=== PATIENT | female | born 1940 | race Caucasian/White ===

== ENCOUNTER 2018-11-05 14:00 | Inpatient (IN) | payer OTHER, MEDICAID ==
[~2018-11-05] VITALS: Ht 157.5 cm; Wt 68.5 kg
[2018-11-05 14:03] VITALS: BP_SYST 138
[2018-11-05] MEDS ORDERED: NACL 0.9% 1,000 ML IV ONE (14:30)
[2018-11-05 14:43] LABS: BASOPHILS # (AUTO) 0.1 K/uL (0.0-0.2); BASOPHILS % (AUTO) 1.3 % (0.0-2.0); EOSINOPHILS # (AUTO) 0.2 K/uL (0.0-0.4); EOSINOPHILS % (AUTO) 2.5 % (0.0-4.0); LYMPHOCYTES # (AUTO) 1.8 K/uL (1.0-5.5); LYMPHOCYTES % (AUTO) 19.9 % (20.5-51.5); MEAN CORPUSCULAR HEMOGLOBIN 16 pg (27-31); MEAN CORPUSCULAR HGB CONC 27 % (32-36); MEAN CORPUSCULAR VOLUME 57 fL (79.0-98.0); MONOCYTES # (AUTO) 0.9 K/uL (0.0-1.0); NEUTROPHILS # (AUTO) 5.9 K/uL (1.8-7.7); NEUTROPHILS % (AUTO) 66.3 % (40.0-70.0); PLATELET COUNT (AUTO) 380 K/uL (130-430); RED BLOOD CELL COUNT(AUTO) 3.33 MIL/uL (4.2-6.2); WHITE BLOOD COUNT (AUTO) 8.9 K/uL (4.8-10.8)
[2018-11-05 14:53] LABS: HEMOGLOBIN 5.2 g/dL (12.0-16.0)
[2018-11-05 15:01] LABS: ALANINE AMINOTRANSFERASE 11 U/L (12-78); ALBUMIN 2.8 g/dL (3.4-4.8); ANION GAP 9 (5-15); ASPARTATE AMINOTRANSFERASE 10 U/L (10-37); CALCIUM 8.8 mg/dL (8.4-11.0); CHLORIDE 107 mmol/L (98-107); GLUCOSE 110 mg/dL (70-99); POTASSIUM 4.9 mmol/L (3.5-5.1); SODIUM SERUM 142 mmol/L (136-145); TOTAL BILIRUBIN 0.3 mg/dL (0.0-1.0); UREA NITROGEN, BLOOD 17 mg/dL (8-21)
[2018-11-05 15:05] LABS: CREATININE 0.85 mg/dL (0.55-1.30)
[2018-11-05] MEDS ORDERED: LACT1CAP61 PO (15:06)
[2018-11-05] MEDS ORDERED: RIVA10TA PO (15:06)
[2018-11-05] MEDS ORDERED: GUAI100S14 PO (15:06)
[2018-11-05] MEDS ORDERED: IPRA4AER INH (15:06)
[2018-11-05] MEDS ORDERED: METO50TA7 PO (15:06)
[2018-11-05] MEDS ORDERED: NOR10 PO (15:06)
[2018-11-05] MEDS ORDERED: DOCU100T10 PO (15:06)
[2018-11-05] MEDS ORDERED: MULT-1117 PO (15:06)
[2018-11-05] MEDS ORDERED: ACET-2165 PO (15:06)
[2018-11-05 15:19] LABS: BILIRUBIN,URINE NEGATIVE (NEGATIVE); BLOOD, URINE NEGATIVE (NEGATIVE); CLARITY/URINE SL HAZY (CLEAR); COLOR,URINE YELLOW (YELLOW); GLUCOSE,URINE NEGATIVE (NEGATIVE); KETONES,URINE NEGATIVE (NEGATIVE); LEUKOCYTE ESTERASE ,URINE NEGATIVE (NEGATIVE); NITRITE, URINE NEGATIVE (NEGATIVE); PH,URINE 5.5 (5.0-8.0); PROTEIN URINE NEGATIVE (NEGATIVE); UROBILINOGEN,URINE 0.2 (0.2-1.0)
[2018-11-05 17:46] VITALS: BP_SYST 149
[2018-11-05 19:25] VITALS: BP_SYST 133
[2018-11-05] MEDS ORDERED: IPRATROPIUM/ALBUTEROL SULFATE 120 PUFFS/4 GM INH INH PRN (19:45)
[2018-11-05] MEDS ORDERED: ACETAMINOPHEN 325 MG TABLET PO PRN (19:45)
[2018-11-05] MEDS ORDERED: guaiFENesin 200 MG/10 ML UDC PO PRN (19:45)
[2018-11-05] MEDS ORDERED: LevALBUTEROL HCL 1.25 MG/0.5 ML *CONC.* VIAL.NEB (XOPENEX CONC.) INH PRN (19:45)
[2018-11-05 20:46] VITALS: BP_SYST 128
[2018-11-05] MEDS: PANTOPRAZOLE SODIUM 40 MG/VIAL (PROTONIX) IVP SCH (21:14)
[2018-11-05] MEDS: DOCUSATE SODIUM 100 MG CAPSULE PO SCH (21:14)
[2018-11-05] MEDS: METOPROLOL SUCCINATE 50 MG TAB.SR.24H (TOPROL XL) PO SCH (21:14)
[2018-11-05] MEDS: LevALBUTEROL HCL 1.25 MG/0.5 ML *CONC.* VIAL.NEB (XOPENEX CONC.) INH SCH (23:43)
[2018-11-06 00:23] VITALS: BP_SYST 119
[2018-11-06] MEDS ORDERED: IPRATROPIUM/ALBUTEROL SULFATE 3 ML AMPUL.NEB (DUONEB) INH PRN (07:15)
[2018-11-06 07:17] LABS: ANION GAP 10 (5-15); CALCIUM 8.8 mg/dL (8.4-11.0); CHLORIDE 109 mmol/L (98-107); CREATININE 0.48 mg/dL (0.55-1.30); GLUCOSE 88 mg/dL (70-99); POTASSIUM 4.1 mmol/L (3.5-5.1); SODIUM SERUM 143 mmol/L (136-145); UREA NITROGEN, BLOOD 11 mg/dL (8-21)
[2018-11-06 07:21] LABS: PHOSPHORUS 2.9 mg/dL (2.7-4.5)
[2018-11-06] MEDS: LevALBUTEROL HCL 1.25 MG/0.5 ML *CONC.* VIAL.NEB (XOPENEX CONC.) INH SCH ×3 (07:33→21:31)
[2018-11-06 07:58] LABS: BASOPHILS # (AUTO) 0.1 K/uL (0.0-0.2); BASOPHILS % (AUTO) 1.5 % (0.0-2.0); EOSINOPHILS # (AUTO) 0.2 K/uL (0.0-0.4); EOSINOPHILS % (AUTO) 1.8 % (0.0-4.0); HEMATOCRIT 28.8 % (36-48); LYMPHOCYTES # (AUTO) 1.7 K/uL (1.0-5.5); LYMPHOCYTES % (AUTO) 19.5 % (20.5-51.5); MEAN CORPUSCULAR HEMOGLOBIN 21 pg (27-31); MEAN CORPUSCULAR HGB CONC 31 % (32-36); MONOCYTES # (AUTO) 0.8 K/uL (0.0-1.0); MONOCYTES % (AUTO) 9.1 % (1.7-9.3); NEUTROPHILS % (AUTO) 68.1 % (40.0-70.0); PLATELET COUNT (AUTO) 340 K/uL (130-430); RED BLOOD CELL COUNT(AUTO) 4.32 MIL/uL (4.2-6.2); RED CELL DISTRIBUTION WIDTH 29.5 % (9.0-15.0); WHITE BLOOD COUNT (AUTO) 8.8 K/uL (4.8-10.8)
[2018-11-06 07:59] VITALS: BP_SYST 157
[2018-11-06 08:02] LABS: MEAN CORPUSCULAR VOLUME 67 fL (79.0-98.0)
[2018-11-06] MEDS: DOCUSATE SODIUM 100 MG CAPSULE PO SCH ×2 (09:38→20:20)
[2018-11-06] MEDS: PANTOPRAZOLE SODIUM 40 MG/VIAL (PROTONIX) IVP SCH ×2 (09:38→20:20)
[2018-11-06] MEDS: amLODIPine BESYLATE 10 MG TABLET PO SCH (09:39)
[2018-11-06] MEDS: METOPROLOL SUCCINATE 50 MG TAB.SR.24H (TOPROL XL) PO SCH ×2 (09:39→20:22)
[2018-11-06] MEDS: MULTIVITAMINS TAB 1 TABLET PO SCH (09:40)
[2018-11-06 11:31] LABS: TOTAL IRON BIND. CAPACITY 316 ug/dL (250-450)
[2018-11-06 11:35] VITALS: BP_SYST 131
[2018-11-06 15:32] VITALS: BP_SYST 125
[2018-11-06 20:00] VITALS: BP_SYST 136
[2018-11-06] MEDS: SOD FERRIC GLUC COMPLEX/SUC 125 MG in NS 100 ML IV SCH (21:46)
[2018-11-07 00:34] VITALS: BP_SYST 117
[2018-11-07] MEDS: LevALBUTEROL HCL 1.25 MG/0.5 ML *CONC.* VIAL.NEB (XOPENEX CONC.) INH SCH ×2 (07:03→16:36)
[2018-11-07 08:00] VITALS: BP_SYST 130
[2018-11-07] MEDS: MULTIVITAMINS TAB 1 TABLET PO SCH (10:05)
[2018-11-07] MEDS: PANTOPRAZOLE SODIUM 40 MG/VIAL (PROTONIX) IVP SCH ×2 (10:05→21:09)
[2018-11-07] MEDS: DOCUSATE SODIUM 100 MG CAPSULE PO SCH ×2 (10:05→21:09)
[2018-11-07] MEDS: amLODIPine BESYLATE 10 MG TABLET PO SCH (10:23)
[2018-11-07] MEDS: METOPROLOL SUCCINATE 50 MG TAB.SR.24H (TOPROL XL) PO SCH ×2 (10:23→21:10)
[2018-11-07 14:12] VITALS: BP_SYST 125
[2018-11-07 16:12] VITALS: BP_SYST 141
[2018-11-07] MEDS: SOD FERRIC GLUC COMPLEX/SUC 125 MG in NS 100 ML IV SCH (18:02)
[2018-11-08] VITALS (7 sets, daily range): BP systolic 127–150
[2018-11-08] MEDS: LevALBUTEROL HCL 1.25 MG/0.5 ML *CONC.* VIAL.NEB (XOPENEX CONC.) INH SCH ×3 (00:41→15:13)
[2018-11-08] MEDS: PANTOPRAZOLE SODIUM 40 MG/VIAL (PROTONIX) IVP SCH ×2 (08:47→20:34)
[2018-11-08] MEDS: DOCUSATE SODIUM 100 MG CAPSULE PO SCH ×2 (08:47→20:34)
[2018-11-08] MEDS: MULTIVITAMINS TAB 1 TABLET PO SCH (08:48)
[2018-11-08] MEDS: amLODIPine BESYLATE 10 MG TABLET PO SCH (08:48)
[2018-11-08] MEDS: METOPROLOL SUCCINATE 50 MG TAB.SR.24H (TOPROL XL) PO SCH ×2 (08:48→20:35)
[2018-11-08] MEDS ORDERED: GOLYTELY / COLYTE SOLUTION 4 LITERS PO ONE (17:00)
[2018-11-08] MEDS ORDERED: BISACODYL 5 MG TABLET.DR (DULCOLAX) PO ONE (17:00)
[2018-11-08] MEDS: SOD FERRIC GLUC COMPLEX/SUC 125 MG in NS 100 ML IV SCH (17:36)
[2018-11-09] MEDS: LevALBUTEROL HCL 1.25 MG/0.5 ML *CONC.* VIAL.NEB (XOPENEX CONC.) INH SCH ×4 (00:34→23:19)
[2018-11-09 06:13] LABS: BASOPHILS # (AUTO) 0.1 K/uL (0.0-0.2); BASOPHILS % (AUTO) 0.9 % (0.0-2.0); EOSINOPHILS # (AUTO) 0.3 K/uL (0.0-0.4); EOSINOPHILS % (AUTO) 2.9 % (0.0-4.0); HEMATOCRIT 28.8 % (36-48); HEMOGLOBIN 8.4 g/dL (12.0-16.0); LYMPHOCYTES # (AUTO) 1.5 K/uL (1.0-5.5); LYMPHOCYTES % (AUTO) 12.6 % (20.5-51.5); MEAN CORPUSCULAR HEMOGLOBIN 20 pg (27-31); MEAN CORPUSCULAR HGB CONC 29 % (32-36); MEAN CORPUSCULAR VOLUME 67 fL (79.0-98.0); MONOCYTES % (AUTO) 8.9 % (1.7-9.3); NEUTROPHILS # (AUTO) 8.7 K/uL (1.8-7.7); NEUTROPHILS % (AUTO) 74.7 % (40.0-70.0); PLATELET COUNT (AUTO) 317 K/uL (130-430); RED BLOOD CELL COUNT(AUTO) 4.28 MIL/uL (4.2-6.2); WHITE BLOOD COUNT (AUTO) 11.7 K/uL (4.8-10.8)
[2018-11-09 06:41] LABS: PROTHROMBIN TIME 10.4 SECS (9.5-12.5)
[2018-11-09 07:18] LABS: RED CELL DISTRIBUTION WIDTH 31.6 % (9.0-15.0)
[2018-11-09 07:40] VITALS: BP_SYST 122
[2018-11-09 07:41] LABS: ANION GAP 10 (5-15); CALCIUM 9.1 mg/dL (8.4-11.0); CHLORIDE 107 mmol/L (98-107); CREATININE 0.55 mg/dL (0.55-1.30); GLUCOSE 84 mg/dL (70-99); SODIUM SERUM 139 mmol/L (136-145); UREA NITROGEN, BLOOD 11 mg/dL (8-21)
[2018-11-09 07:43] LABS: POTASSIUM 2.9 mmol/L (3.5-5.1)
[2018-11-09] MEDS: PANTOPRAZOLE SODIUM 40 MG/VIAL (PROTONIX) IVP SCH ×2 (08:21→22:13)
[2018-11-09] MEDS ORDERED: POTASSIUM CHLORIDE 20 MEQ TAB.PRT.SR PO ONE ×2 (08:30→13:00)
[2018-11-09] MEDS: amLODIPine BESYLATE 10 MG TABLET PO SCH (09:00)
[2018-11-09] MEDS: DOCUSATE SODIUM 100 MG CAPSULE PO SCH ×2 (09:00→22:13)
[2018-11-09] MEDS: METOPROLOL SUCCINATE 50 MG TAB.SR.24H (TOPROL XL) PO SCH ×2 (09:00→22:13)
[2018-11-09] MEDS: MULTIVITAMINS TAB 1 TABLET PO SCH (09:00)
[2018-11-09] MEDS ORDERED: POTASSIUM CHLORIDE 40 MEQ in NS 250 ML IV ONE (09:15)
[2018-11-09] MEDS: MIDAZOLAM HCL 5 MG/5 ML VIAL ONE ×4 (09:51→10:43)
[2018-11-09] MEDS: MEPERIDINE HCL/PF 100 MG/ML AMP ONE ×4 (09:52→10:43)
[2018-11-09] MEDS ORDERED: MAGNESIUM CITRATE 300 ML ORAL SOLUTION PO ONE (11:00)
[2018-11-09] MEDS ORDERED: POLYETHYLENE GLYCOL 3350, 17 GM/ POWD.PACK PO ONE (11:15)
[2018-11-09 13:09] VITALS: BP_SYST 107
[2018-11-09] MEDS: POLYETHYLENE GLYCOL 3350, 17 GM/ POWD.PACK PO SCH ×2 (15:00→22:13)
[2018-11-09 16:39] VITALS: BP_SYST 126
[2018-11-09] MEDS: SOD FERRIC GLUC COMPLEX/SUC 125 MG in NS 100 ML IV SCH (17:36)
[2018-11-09 20:57] VITALS: BP_SYST 137
[2018-11-09 23:46] VITALS: BP_SYST 146
[2018-11-10 06:12] LABS: BASOPHILS # (AUTO) 0.1 K/uL (0.0-0.2); BASOPHILS % (AUTO) 0.8 % (0.0-2.0); EOSINOPHILS # (AUTO) 0.4 K/uL (0.0-0.4); EOSINOPHILS % (AUTO) 3.9 % (0.0-4.0); HEMATOCRIT 28.7 % (36-48); HEMOGLOBIN 8.5 g/dL (12.0-16.0); LYMPHOCYTES # (AUTO) 1.1 K/uL (1.0-5.5); LYMPHOCYTES % (AUTO) 11.4 % (20.5-51.5); MEAN CORPUSCULAR HEMOGLOBIN 20 pg (27-31); MEAN CORPUSCULAR HGB CONC 30 % (32-36); MEAN CORPUSCULAR VOLUME 69 fL (79.0-98.0); MONOCYTES # (AUTO) 0.8 K/uL (0.0-1.0); MONOCYTES % (AUTO) 8.2 % (1.7-9.3); NEUTROPHILS # (AUTO) 7.5 K/uL (1.8-7.7); NEUTROPHILS % (AUTO) 75.7 % (40.0-70.0); PLATELET COUNT (AUTO) 305 K/uL (130-430); RED BLOOD CELL COUNT(AUTO) 4.19 MIL/uL (4.2-6.2); RED CELL DISTRIBUTION WIDTH 32.2 % (9.0-15.0); WHITE BLOOD COUNT (AUTO) 9.9 K/uL (4.8-10.8)
[2018-11-10 06:30] LABS: ANION GAP 10 (5-15); CALCIUM 8.8 mg/dL (8.4-11.0); CHLORIDE 111 mmol/L (98-107); CREATININE 0.57 mg/dL (0.55-1.30); GLUCOSE 81 mg/dL (70-99); POTASSIUM 4.7 mmol/L (3.5-5.1); SODIUM SERUM 143 mmol/L (136-145); UREA NITROGEN, BLOOD 8 mg/dL (8-21)
[2018-11-10] MEDS: LevALBUTEROL HCL 1.25 MG/0.5 ML *CONC.* VIAL.NEB (XOPENEX CONC.) INH SCH ×3 (07:11→23:00)
[2018-11-10 08:15] VITALS: BP_SYST 116
[2018-11-10] MEDS: PANTOPRAZOLE SODIUM 40 MG/VIAL (PROTONIX) IVP SCH ×2 (10:18→21:49)
[2018-11-10] MEDS: METOPROLOL SUCCINATE 50 MG TAB.SR.24H (TOPROL XL) PO SCH ×2 (10:19→21:49)
[2018-11-10] MEDS: amLODIPine BESYLATE 10 MG TABLET PO SCH (10:19)
[2018-11-10] MEDS: DOCUSATE SODIUM 100 MG CAPSULE PO SCH ×2 (10:20→21:49)
[2018-11-10] MEDS: POLYETHYLENE GLYCOL 3350, 17 GM/ POWD.PACK PO SCH ×3 (10:20→21:49)
[2018-11-10] MEDS: MULTIVITAMINS TAB 1 TABLET PO SCH (10:20)
[2018-11-10] MEDS ORDERED: SORBITOL 70% SOLUTION, 30 ML UDBTL PO ONE (11:45)
[2018-11-10 12:34] VITALS: BP_SYST 119
[2018-11-10 16:29] VITALS: BP_SYST 118
[2018-11-10] MEDS ORDERED: BISACODYL 5 MG TABLET.DR (DULCOLAX) PO ONE (17:00)
[2018-11-10] MEDS: SOD FERRIC GLUC COMPLEX/SUC 125 MG in NS 100 ML IV SCH (17:41)
[2018-11-10] MEDS ORDERED: MAGNESIUM CITRATE 300 ML ORAL SOLUTION PO ONE (19:00)
[2018-11-10 20:55] VITALS: BP_SYST 130
[2018-11-11 00:36] VITALS: BP_SYST 137
[2018-11-11 06:14] LABS: ANION GAP 11 (5-15); CALCIUM 8.7 mg/dL (8.4-11.0); CHLORIDE 106 mmol/L (98-107); GLUCOSE 98 mg/dL (70-99); POTASSIUM 3.5 mmol/L (3.5-5.1); SODIUM SERUM 139 mmol/L (136-145); UREA NITROGEN, BLOOD 6 mg/dL (8-21)
[2018-11-11 06:19] LABS: BASOPHILS # (AUTO) 0.1 K/uL (0.0-0.2); EOSINOPHILS # (AUTO) 0.7 K/uL (0.0-0.4); HEMATOCRIT 34.3 % (36-48); HEMOGLOBIN 9.9 g/dL (12.0-16.0); LYMPHOCYTES # (AUTO) 1.9 K/uL (1.0-5.5); LYMPHOCYTES % (AUTO) 16.7 % (20.5-51.5); MEAN CORPUSCULAR HEMOGLOBIN 20 pg (27-31); MEAN CORPUSCULAR HGB CONC 29 % (32-36); MEAN CORPUSCULAR VOLUME 69 fL (79.0-98.0); MONOCYTES # (AUTO) 0.9 K/uL (0.0-1.0); MONOCYTES % (AUTO) 7.7 % (1.7-9.3); NEUTROPHILS # (AUTO) 7.8 K/uL (1.8-7.7); NEUTROPHILS % (AUTO) 68.6 % (40.0-70.0); PLATELET COUNT (AUTO) 403 K/uL (130-430); RED BLOOD CELL COUNT(AUTO) 4.96 MIL/uL (4.2-6.2); WHITE BLOOD COUNT (AUTO) 11.3 K/uL (4.8-10.8)
[2018-11-11] MEDS: MIDAZOLAM HCL 5 MG/5 ML VIAL ONE ×2 (07:07→07:15)
[2018-11-11] MEDS ORDERED: SIMETHICONE 40 MG/0.6 ML ML ONE (07:07)
[2018-11-11] MEDS ORDERED: fentaNYL CITRATE/PF 100 MCG/2 ML AMP ONE (07:07)
[2018-11-11 07:27] LABS: RED CELL DISTRIBUTION WIDTH 33.4 % (9.0-15.0)
[2018-11-11] MEDS: LevALBUTEROL HCL 1.25 MG/0.5 ML *CONC.* VIAL.NEB (XOPENEX CONC.) INH SCH ×2 (07:48→16:11)
[2018-11-11 08:00] VITALS: BP_SYST 110
[2018-11-11] MEDS ORDERED: DIATR MEGLU/DIATRIZ SOD 30 ML SOLUTION PO ONE (08:07)
[2018-11-11] MEDS: POLYETHYLENE GLYCOL 3350, 17 GM/ POWD.PACK PO SCH ×2 (09:18→14:34)
[2018-11-11] MEDS: PANTOPRAZOLE SODIUM 40 MG/VIAL (PROTONIX) IVP SCH (09:18)
[2018-11-11] MEDS: DOCUSATE SODIUM 100 MG CAPSULE PO SCH (09:18)
[2018-11-11] MEDS: amLODIPine BESYLATE 10 MG TABLET PO SCH (09:18)
[2018-11-11] MEDS: METOPROLOL SUCCINATE 50 MG TAB.SR.24H (TOPROL XL) PO SCH (09:19)
[2018-11-11] MEDS: MULTIVITAMINS TAB 1 TABLET PO SCH (09:20)
[2018-11-11 11:31] VITALS: BP_SYST 136
[2018-11-11] MEDS ORDERED: IOHEXOL 100 ML IV ONE (13:16)
[2018-11-11 15:32] VITALS: BP_SYST 146
[2018-11-11 16:35] VITALS: BP_SYST 110
[2018-11-16 14:32] LABS: FOLATE (FOLIC ACID) 8.1
== END 2018-11-11 16:55 | DRG 374 ==
LOC: SED 14:00 → STU 17:15 → SMU 11-08 16:33
PROVIDERS: ADMIT Family Medicine; ATTEND Family Medicine
PROC: 30253N1 (ICD-10-PCS; 2018-11-05)
PROC: 0DB68ZX Excision of Stomach, Via Natural or Artificial Opening Endoscopic, Diagnostic (ICD-10-PCS; 2018-11-09)
PROC: 0DBL8ZZ Excision of Transverse Colon, Via Natural or Artificial Opening Endoscopic (ICD-10-PCS; 2018-11-09)
PROC: 0DB98ZX Excision of Duodenum, Via Natural or Artificial Opening Endoscopic, Diagnostic (ICD-10-PCS; principal; 2018-11-11 07:00)
DX: C18.3 Malignant neoplasm of hepatic flexure (principal); E43 Unspecified severe protein-calorie malnutrition; K29.71 Gastritis, unspecified, with bleeding; K57.31 Diverticulosis of large intestine without perforation or abscess with bleeding; D50.9 Iron deficiency anemia, unspecified; I10 Essential (primary) hypertension; J44.9 Chronic obstructive pulmonary disease, unspecified; F03.90 Unspecified dementia, unspecified severity, without behavioral disturbance, psychotic disturbance, mood disturbance, and anxiety; D12.3 Benign neoplasm of transverse colon; M19.90 Unspecified osteoarthritis, unspecified site; K64.8 Other hemorrhoids; I73.9 Peripheral vascular disease, unspecified; K63.5 Polyp of colon; Z68.27 Body mass index [BMI] 27.0-27.9, adult; I48.91 Unspecified atrial fibrillation; H91.90 Unspecified hearing loss, unspecified ear; G47.00 Insomnia, unspecified; Z88.9 Allergy status to unspecified drugs, medicaments and biological substances; K31.7 Polyp of stomach and duodenum
CPT/HCPCS: 36415; 43239; 45381; 45384; 71045; 71260-TC; 80048; 80053; 81003; 82272; 82378; 82607; 82728; 82746; 83540-TC; 83550-TC; 83605; 83735-TC; 84100-TC; 85025; 85610-TC; 85730-TC; 86886; 86900; 86901; 86920; 87081; 88305; 88312; 94640; 94760; 96360; 99291; C9113; G0378; J2175; J2250; J2916; J3010; J3480; J7030; J7040; J7050; J7612; P9021; Q9964; Q9967

== ENCOUNTER 2019-06-02 14:58 | Inpatient (IN) | payer OTHER, MEDICAID ==
[~2019-06-02] VITALS: Ht 152.4 cm; Wt 53.5 kg
[~2019-06-02 14:58] MED LIST: ACET-2165 PO; DOCU100T10 PO; GUAI100S14 PO; IPRA4AER INH; LACT1CAP61 PO; METO50TA7 PO; MULT-1117 PO; NOR10 PO; RIVA10TA PO
[2019-06-02 15:02] VITALS: BP_SYST 124
[2019-06-02 16:11] LABS: BASOPHILS # (AUTO) 0.1 K/uL (0.0-0.2); EOSINOPHILS # (AUTO) 0.2 K/uL (0.0-0.4); EOSINOPHILS % (AUTO) 1.6 % (0.0-4.0); LYMPHOCYTES # (AUTO) 1.4 K/uL (1.0-5.5); LYMPHOCYTES % (AUTO) 14.6 % (20.5-51.5); MEAN CORPUSCULAR HEMOGLOBIN 16 pg (27-31); MEAN CORPUSCULAR HGB CONC 28 % (32-36); MEAN CORPUSCULAR VOLUME 57 fL (79.0-98.0); MONOCYTES % (AUTO) 10.4 % (1.7-9.3); NEUTROPHILS # (AUTO) 6.9 K/uL (1.8-7.7); NEUTROPHILS % (AUTO) 72.4 % (40.0-70.0); PLATELET COUNT (AUTO) 406 K/uL (130-430); RED BLOOD CELL COUNT(AUTO) 3.77 MIL/uL (4.2-6.2); RED CELL DISTRIBUTION WIDTH 18.9 % (9.0-15.0); WHITE BLOOD COUNT (AUTO) 9.6 K/uL (4.8-10.8)
[2019-06-02 16:27] LABS: ANION GAP 8 (5-15); CALCIUM 8.5 mg/dL (8.4-11.0); CHLORIDE 107 mmol/L (98-107); CREATININE 0.59 mg/dL (0.55-1.30); GLUCOSE 111 mg/dL (70-99); POTASSIUM 4.7 mmol/L (3.5-5.1); SODIUM SERUM 139 mmol/L (136-145); UREA NITROGEN, BLOOD 15 mg/dL (8-21)
[2019-06-02 16:30] LABS: INR 1.4 (0.8-1.2); PROTHROMBIN TIME 13.6 SECS (9.5-12.5)
[2019-06-02 16:32] LABS: ALANINE AMINOTRANSFERASE 11 U/L (12-78); ALBUMIN 3.1 g/dL (3.4-4.8); ASPARTATE AMINOTRANSFERASE 8 U/L (10-37); TOTAL BILIRUBIN 0.4 mg/dL (0.0-1.0)
[2019-06-02 16:37] LABS: HEMOGLOBIN 6.1 g/dL (12.0-16.0)
[2019-06-02 16:38] LABS: HEMATOCRIT 21.5 % (36-48)
[2019-06-02] MEDS ORDERED: ACETAMINOPHEN 325 MG TABLET PO SCH (18:00)
[2019-06-02] MEDS ORDERED: LevALBUTEROL HCL 1.25 MG/0.5 ML *CONC.* VIAL.NEB (XOPENEX CONC.) INH PRN (18:00)
[2019-06-02 18:45] VITALS: BP_SYST 152
[2019-06-02 19:55] VITALS: BP_SYST 123
[2019-06-02] MEDS: METOPROLOL SUCCINATE 50 MG TAB.SR.24H (TOPROL XL) PO SCH (20:53)
[2019-06-02] MEDS: DOCUSATE SODIUM 100 MG CAPSULE PO SCH (20:53)
[2019-06-02 21:16] VITALS: BP_SYST 123
[2019-06-02] MEDS: LevALBUTEROL HCL 1.25 MG/0.5 ML *CONC.* VIAL.NEB (XOPENEX CONC.) INH SCH (22:50)
[2019-06-02 23:16] VITALS: BP_SYST 124
[2019-06-03 00:06] VITALS: BP_SYST 127
[2019-06-03] MEDS: LevALBUTEROL HCL 1.25 MG/0.5 ML *CONC.* VIAL.NEB (XOPENEX CONC.) INH SCH ×2 (07:00→15:36)
[2019-06-03 08:00] VITALS: BP_SYST 126
[2019-06-03] MEDS: LACTOBACILLUS RHAMNOSUS GG 1 CAP CAPSULE PO SCH (08:25)
[2019-06-03] MEDS: DOCUSATE SODIUM 100 MG CAPSULE PO SCH ×2 (08:25→22:17)
[2019-06-03] MEDS: MULTIVITAMINS TAB 1 TABLET PO SCH (08:25)
[2019-06-03] MEDS: amLODIPine BESYLATE 10 MG TABLET PO SCH (08:26)
[2019-06-03] MEDS: METOPROLOL SUCCINATE 50 MG TAB.SR.24H (TOPROL XL) PO SCH ×2 (08:26→22:16)
[2019-06-03 11:21] VITALS: BP_SYST 120
[2019-06-03 15:03] VITALS: BP_SYST 105
[2019-06-03] MEDS ORDERED: HALOPERIDOL LACTATE 5 MG/ML VIAL IM ONE (17:00)
[2019-06-03 19:00] VITALS: BP_SYST 115
[2019-06-03 20:00] VITALS: BP_SYST 129
[2019-06-03] MEDS: KCL 20 mEq in D5/0.45NS 1000mL 1,000 ML IV SCH (23:07)
[2019-06-04] VITALS: BP_SYST 118
[2019-06-04] MEDS: LevALBUTEROL HCL 1.25 MG/0.5 ML *CONC.* VIAL.NEB (XOPENEX CONC.) INH SCH ×4 (00:08→23:49)
[2019-06-04 04:00] VITALS: BP_SYST 132
[2019-06-04 08:05] LABS: ANION GAP 7 (5-15); CALCIUM 8.3 mg/dL (8.4-11.0); CHLORIDE 106 mmol/L (98-107); CREATININE 0.48 mg/dL (0.55-1.30); GLUCOSE 116 mg/dL (70-99); POTASSIUM 4.2 mmol/L (3.5-5.1); SODIUM SERUM 135 mmol/L (136-145); UREA NITROGEN, BLOOD 10 mg/dL (8-21)
[2019-06-04 08:19] LABS: BASOPHILS # (AUTO) 0.1 K/uL (0.0-0.2); EOSINOPHILS # (AUTO) 0.2 K/uL (0.0-0.4); HEMATOCRIT 37.3 % (36-48); HEMOGLOBIN 11.4 g/dL (12.0-16.0); LYMPHOCYTES # (AUTO) 2.1 K/uL (1.0-5.5); LYMPHOCYTES % (AUTO) 20.6 % (20.5-51.5); MEAN CORPUSCULAR HEMOGLOBIN 22 pg (27-31); MEAN CORPUSCULAR HGB CONC 31 % (32-36); MEAN CORPUSCULAR VOLUME 71 fL (79.0-98.0); MONOCYTES % (AUTO) 9.5 % (1.7-9.3); NEUTROPHILS # (AUTO) 6.9 K/uL (1.8-7.7); NEUTROPHILS % (AUTO) 66.9 % (40.0-70.0); PLATELET COUNT (AUTO) 346 K/uL (130-430); RED BLOOD CELL COUNT(AUTO) 5.23 MIL/uL (4.2-6.2); RED CELL DISTRIBUTION WIDTH 31.9 % (9.0-15.0); WHITE BLOOD COUNT (AUTO) 10.3 K/uL (4.8-10.8)
[2019-06-04 08:28] LABS: TOTAL IRON BIND. CAPACITY 441 ug/dL (250-450)
[2019-06-04 09:44] VITALS: BP_SYST 119
[2019-06-04] MEDS: LACTOBACILLUS RHAMNOSUS GG 1 CAP CAPSULE PO SCH (09:46)
[2019-06-04] MEDS: DOCUSATE SODIUM 100 MG CAPSULE PO SCH ×2 (09:46→20:59)
[2019-06-04] MEDS: KCL 20 mEq in D5/0.45NS 1000mL 1,000 ML IV SCH ×2 (09:46→20:59)
[2019-06-04] MEDS: MULTIVITAMINS TAB 1 TABLET PO SCH (09:46)
[2019-06-04] MEDS: amLODIPine BESYLATE 10 MG TABLET PO SCH (09:46)
[2019-06-04] MEDS: METOPROLOL SUCCINATE 50 MG TAB.SR.24H (TOPROL XL) PO SCH ×2 (09:47→20:59)
[2019-06-04] MEDS: guaiFENesin 200 MG/10 ML UDC PO PRN ×2 (09:53→20:59)
[2019-06-04 11:14] VITALS: BP_SYST 120
[2019-06-04 15:26] VITALS: BP_SYST 156
[2019-06-04 19:00] VITALS: BP_SYST 133
[2019-06-05] VITALS: BP_SYST 154
[2019-06-05] MEDS: guaiFENesin 200 MG/10 ML UDC PO PRN (06:05)
[2019-06-05] MEDS: LevALBUTEROL HCL 1.25 MG/0.5 ML *CONC.* VIAL.NEB (XOPENEX CONC.) INH SCH ×2 (07:47→16:12)
[2019-06-05 08:00] VITALS: BP_SYST 141
[2019-06-05 08:06] LABS: FOLATE (FOLIC ACID) 7.1 ng/mL (>3.0)
[2019-06-05 08:17] LABS: ALANINE AMINOTRANSFERASE 10 U/L (12-78); ALBUMIN 2.9 g/dL (3.4-4.8); ANION GAP 3 (5-15); ASPARTATE AMINOTRANSFERASE 10 U/L (10-37); BASOPHILS % (AUTO) 0.5 % (0.0-2.0); CALCIUM 8.2 mg/dL (8.4-11.0); CHLORIDE 107 mmol/L (98-107); CREATININE 0.52 mg/dL (0.55-1.30); EOSINOPHILS # (AUTO) 0.3 K/uL (0.0-0.4); EOSINOPHILS % (AUTO) 3.7 % (0.0-4.0); GLUCOSE 102 mg/dL (70-99); HEMATOCRIT 36.6 % (36-48); HEMOGLOBIN 11.4 g/dL (12.0-16.0); LYMPHOCYTES # (AUTO) 1.6 K/uL (1.0-5.5); LYMPHOCYTES % (AUTO) 17.7 % (20.5-51.5); MEAN CORPUSCULAR HEMOGLOBIN 22 pg (27-31); MEAN CORPUSCULAR HGB CONC 31 % (32-36); MEAN CORPUSCULAR VOLUME 71 fL (79.0-98.0); MONOCYTES # (AUTO) 0.8 K/uL (0.0-1.0); MONOCYTES % (AUTO) 9.5 % (1.7-9.3); PLATELET COUNT (AUTO) 343 K/uL (130-430); POTASSIUM 4.8 mmol/L (3.5-5.1); RED BLOOD CELL COUNT(AUTO) 5.14 MIL/uL (4.2-6.2); RED CELL DISTRIBUTION WIDTH 32.1 % (9.0-15.0); SODIUM SERUM 132 mmol/L (136-145); TOTAL BILIRUBIN 0.7 mg/dL (0.0-1.0); UREA NITROGEN, BLOOD 8 mg/dL (8-21); WHITE BLOOD COUNT (AUTO) 8.8 K/uL (4.8-10.8)
[2019-06-05] MEDS: amLODIPine BESYLATE 10 MG TABLET PO SCH (08:39)
[2019-06-05] MEDS: MULTIVITAMINS TAB 1 TABLET PO SCH (08:39)
[2019-06-05] MEDS: METOPROLOL SUCCINATE 50 MG TAB.SR.24H (TOPROL XL) PO SCH (08:39)
[2019-06-05] MEDS: LACTOBACILLUS RHAMNOSUS GG 1 CAP CAPSULE PO SCH (08:39)
[2019-06-05] MEDS: DOCUSATE SODIUM 100 MG CAPSULE PO SCH (08:39)
[2019-06-05 08:40] LABS: NEUTROPHILS % (AUTO) 68.6 % (40.0-70.0)
[2019-06-05] MEDS: KCL 20 mEq in D5/0.45NS 1000mL 1,000 ML IV SCH (08:41)
[2019-06-05 12:43] VITALS: BP_SYST 112
[2019-06-05 16:17] VITALS: BP_SYST 112
[2019-06-05 17:00] VITALS: BP_SYST 131
[2019-06-05 17:18] VITALS: BP_SYST 131
== END 2019-06-05 19:21 | DRG 378 ==
LOC: SED 14:58 → STU 17:06
PROVIDERS: ADMIT Family Medicine; ATTEND Family Medicine
PROC: 30233N1 Transfusion of Nonautologous Red Blood Cells into Peripheral Vein, Percutaneous Approach (ICD-10-PCS; principal; 2019-06-02)
DX: K92.2 Gastrointestinal hemorrhage, unspecified (principal); E44.1 Mild protein-calorie malnutrition; D50.9 Iron deficiency anemia, unspecified; F03.90 Unspecified dementia, unspecified severity, without behavioral disturbance, psychotic disturbance, mood disturbance, and anxiety; I10 Essential (primary) hypertension; I73.9 Peripheral vascular disease, unspecified; J44.9 Chronic obstructive pulmonary disease, unspecified; M19.90 Unspecified osteoarthritis, unspecified site; T45.516A Underdosing of anticoagulants, initial encounter; Z87.891 Personal history of nicotine dependence; Y92.89 Other specified places as the place of occurrence of the external cause
CPT/HCPCS: 36415; 36430; 80048; 80053; 82272; 82607; 82728; 82746; 83540-TC; 83550-TC; 85025; 85610-TC; 85730-TC; 86886; 86900; 86901; 86920; 87081; 93005; 94640; 94760; 99285; G0378; J1630; J7040; J7612; P9021